=== PATIENT | male | born 1955 | race Caucasian/White ===

== ENCOUNTER 2023-03-03 12:44 | Inpatient (IN) | payer MEDICARE, OTHER ==
[~2023-03-03] VITALS: Ht 167.6 cm; Wt 72.6 kg
[2023-03-03] MEDS ORDERED: methylPREDNISolone SOD SUCC 125 MG/2ML VIAL ONE (13:27)
[2023-03-03] MEDS ORDERED: IV NS 0.9% 500 ML IV ONE (13:30)
[2023-03-03] MEDS ORDERED: methylPREDNISolone SOD SUCC 125 MG/2ML VIAL IV ONE (13:30)
[2023-03-03] MEDS ORDERED: ALBUTEROL FS 2.5 MG/3 ML VIAL.NEB NEB ONE (13:30)
[2023-03-03] MEDS ORDERED: IPRATROPIUM NEB FS 0.5 MG/2.5 ML AMPUL.NEB NEB ONE (13:30)
[2023-03-03] MEDS ORDERED: ALBUTEROL FS 2.5 MG/3 ML VIAL.NEB ONE (13:38)
[2023-03-03] MEDS ORDERED: IPRATROPIUM NEB FS 0.5 MG/2.5 ML AMPUL.NEB ONE (13:38)
[2023-03-03] MEDS ORDERED: HYDR-4076 PO (13:39)
[2023-03-03] MEDS ORDERED: IPRA3AMP22 HHN (13:39)
[2023-03-03] MEDS ORDERED: TACR30OI5 TP (13:39)
[2023-03-03] MEDS ORDERED: BISA10SU11 RC (13:39)
[2023-03-03] MEDS ORDERED: KETO15CR2 TP (13:39)
[2023-03-03] MEDS ORDERED: NA P133E RC (13:39)
[2023-03-03] MEDS ORDERED: MULT-213 PO (13:39)
[2023-03-03] MEDS ORDERED: PANT40TA49 PO (13:39)
[2023-03-03] MEDS ORDERED: TAMS-12 PO (13:39)
[2023-03-03] MEDS ORDERED: LEVE100S PO (13:39)
[2023-03-03] MEDS ORDERED: MIRT-90 PO (13:39)
[2023-03-03] MEDS ORDERED: MAGN400O6 PO (13:39)
[2023-03-03] MEDS ORDERED: ACET-868 PO (13:39)
[2023-03-03] MEDS ORDERED: BUDE10.27 IH (13:39)
[2023-03-03] MEDS ORDERED: LOSA50TA39 PO (13:39)
[2023-03-03] MEDS ORDERED: NEOM1OIN15 TP (13:41)
[2023-03-03 13:42] VITALS: O2SAT 96
[2023-03-03 13:57] VITALS: O2SAT 98
[2023-03-03 14:00] LABS: BASOPHILS % (AUTO) 0.3 % (0.0-2.0); HEMATOCRIT 43 % (39-51); HEMOGLOBIN 14.5 g/dL (13.5-17.5); LYMPHOCYTES # (AUTO) 0.7 K/uL (0.8-4.8); MEAN CORPUSCULAR HEMOGLOBIN 30 PG (26.0-33.0); MEAN CORPUSCULAR HGB CONC 34 g/dl (31.0-36.0); MEAN CORPUSCULAR VOLUME 90 fL (80-96); MONOCYTES # (AUTO) 0.8 K/uL (0.1-1.30); MONOCYTES % (AUTO) 6.8 % (2.0-12.0); NEUTROPHILS # (AUTO) 9.7 K/uL (1.8-8.9); NEUTROPHILS % (AUTO) 86.9 % (43.0-81.0); PLATELET COUNT (AUTO) 203 K/uL (150-450); RED BLOOD CELL COUNT(AUTO) 4.78 MIL/uL (4.5-6.0); RED CELL DISTRIBUTION WIDTH 14.6 % (11.5-15.0); WHITE BLOOD COUNT (AUTO) 11.2 K/uL (4.3-11.0)
[2023-03-03 14:09] LABS: CALCIUM, SERUM 9.5 mg/dL (8.5-10.1); CARBON DIOXIDE 27 mmol/L (21-32); CHLORIDE 105 mmol/L (98-107); CREATININE 0.8 mg/dL (0.6-1.3); GLUCOSE 134 mg/dL (74-106); POTASSIUM 3.5 mmol/L (3.5-5.1); SODIUM SERUM 141 mmol/L (136-145); UREA NITROGEN, BLOOD 27 mg/dL (7-18)
[2023-03-03 14:15] LABS: ALANINE AMINOTRANSFERASE 22 U/L (12-78); ALBUMIN 2.9 g/dL (3.4-5.0); ALKALINE PHOSPHATASE 87 U/L (46-116); ASPARTATE AMINOTRANSFERASE 20 U/L (15-37); BILIRUBIN,DIRECT 0.2 mg/dL (0.0-0.2); BILIRUBIN,TOTAL 0.7 mg/dL (0.2-1.0); TOTAL PROTEIN, SERUM 7.5 g/dL (6.4-8.2)
[2023-03-03] MEDS ORDERED: AZITHROMYCIN 500 MG in IV D5W 250 ML IV ONE (15:30)
[2023-03-03] MEDS ORDERED: ONDANSETRON HCL/PF 4 MG/2 ML VIAL IVP PRN (16:00)
[2023-03-03] MEDS ORDERED: ALBUTEROL FS 2.5 MG/0.5 ML VIAL.NEB NEB PRN ×3 (16:00→16:30)
[2023-03-03] MEDS ORDERED: hydrALAZINE HCL IV 20 MG VIAL IV PRN (16:00)
[2023-03-03] MEDS ORDERED: MAGNESIUM HYDROXIDE 30 ML UDC PO PRN (16:00)
[2023-03-03] MEDS ORDERED: MORPHINE SULFATE INJ 2 MG/ML DISP.SYRIN IV PRN (16:00)
[2023-03-03] MEDS ORDERED: ACETAMINOPHEN 325 MG TABLET PO PRN (16:00)
[2023-03-03] MEDS ORDERED: IPRATROPIUM NEB FS 0.5 MG/2.5 ML AMPUL.NEB NEB PRN (16:30)
[2023-03-03] MEDS: hydrALAZINE HCL 25 MG TABLET PO SCH (17:00)
[2023-03-03] MEDS ORDERED: LEVETIRACETAM SOL (5 ML) 100 MG/ML UDC PO SCH (17:00)
[2023-03-03] MEDS: CEFEPIME 2 GM in IV D5W 100 ML IV SCH (18:35)
[2023-03-03] MEDS: BUDESONIDE RESPULE INH 0.5 MG/2 ML AMPUL.NEB NEB SCH (19:30)
[2023-03-03 20:00] VITALS: BP 101/69; TEMP 97.9; O2SAT 96
[2023-03-03] MEDS: MIRTAZAPINE 15 MG TABLET PO SCH (21:22)
[2023-03-03] MEDS: TAMSULOSIN 0.4 MG CAP.SR.24H PO SCH (21:22)
[2023-03-03] MEDS: HEPARIN SODIUM, PORCINE 5000 UNITS/1 ML VIAL SQ SCH (21:22)
[2023-03-04] VITALS (7 sets, daily range): BP systolic 102–107; BP diastolic 60–79; TEMP 97.6–98.4; O2SAT 92–99
[2023-03-04] MEDS: CEFEPIME 2 GM in IV D5W 100 ML IV SCH ×3 (01:25→17:22)
[2023-03-04 06:46] LABS: ALBUMIN 2.3 g/dL (3.4-5.0); BILIRUBIN,TOTAL 0.5 mg/dL (0.2-1.0); CALCIUM, SERUM 9.3 mg/dL (8.5-10.1); CREATININE 0.5 mg/dL (0.6-1.3); MAGNESIUM 2.5 mg/dL (1.8-2.4); PHOSPHORUS 3.2 mg/dL (2.5-4.9); POTASSIUM 5.1 mmol/L (3.5-5.1); TOTAL PROTEIN, SERUM 6.8 g/dL (6.4-8.2)
[2023-03-04] MEDS: BUDESONIDE RESPULE INH 0.5 MG/2 ML AMPUL.NEB NEB SCH ×2 (07:30→19:59)
[2023-03-04] MEDS: ALBUTEROL FS 2.5 MG/0.5 ML VIAL.NEB NEB SCH ×3 (07:35→19:56)
[2023-03-04] MEDS: LEVETIRACETAM (250 MG) 250 MG TABLET PO SCH ×2 (08:18→16:42)
[2023-03-04] MEDS: PANTOPRAZOLE 40 MG TABLET.DR PO SCH (08:18)
[2023-03-04] MEDS: hydrALAZINE HCL 25 MG TABLET PO SCH ×3 (09:00→17:00)
[2023-03-04] MEDS: LOSARTAN POTASSIUM 50 MG TABLET PO SCH (09:00)
[2023-03-04] MEDS: HEPARIN SODIUM, PORCINE 5000 UNITS/1 ML VIAL SQ SCH ×2 (09:26→21:28)
[2023-03-04] MEDS: GUAIFENESIN LA 600 MG TABLET.SA PO SCH ×2 (09:42→21:13)
[2023-03-04] MEDS ORDERED: Z GUARD REMEDY 4 OZ OINT TP PRN (11:30)
[2023-03-04] MEDS: Z GUARD REMEDY 4 OZ OINT TP SCH (12:08)
[2023-03-04 17:41] LABS: BASOPHILS % (AUTO) 0.1 % (0.0-2.0); EOSINOPHILS % (AUTO) 0.2 % (0.0-6.0); HEMATOCRIT 40 % (39-51); HEMOGLOBIN 13.2 g/dL (13.5-17.5); LYMPHOCYTES # (AUTO) 0.7 K/uL (0.8-4.8); LYMPHOCYTES % (AUTO) 7.3 % (20.0-44.0); MEAN CORPUSCULAR HEMOGLOBIN 31 PG (26.0-33.0); MEAN CORPUSCULAR HGB CONC 33 g/dl (31.0-36.0); MEAN CORPUSCULAR VOLUME 92 fL (80-96); MONOCYTES # (AUTO) 0.5 K/uL (0.1-1.30); MONOCYTES % (AUTO) 5.8 % (2.0-12.0); NEUTROPHILS # (AUTO) 7.7 K/uL (1.8-8.9); NEUTROPHILS % (AUTO) 86.6 % (43.0-81.0); PLATELET COUNT (AUTO) 205 K/uL (150-450); RED BLOOD CELL COUNT(AUTO) 4.32 MIL/uL (4.5-6.0); RED CELL DISTRIBUTION WIDTH 14.6 % (11.5-15.0); WHITE BLOOD COUNT (AUTO) 8.9 K/uL (4.3-11.0)
[2023-03-04] MEDS: TAMSULOSIN 0.4 MG CAP.SR.24H PO SCH (21:13)
[2023-03-04] MEDS: MIRTAZAPINE 15 MG TABLET PO SCH (21:13)
[2023-03-05] VITALS (11 sets, daily range): BP systolic 107–125; BP diastolic 64–79; TEMP 97.7–97.9; O2SAT 92–99
[2023-03-05] MEDS: CEFEPIME 2 GM in IV D5W 100 ML IV SCH ×3 (01:48→17:37)
[2023-03-05] MEDS: ALBUTEROL FS 2.5 MG/0.5 ML VIAL.NEB NEB SCH ×4 (02:01→20:01)
[2023-03-05] MEDS: BUDESONIDE RESPULE INH 0.5 MG/2 ML AMPUL.NEB NEB SCH ×2 (07:50→20:01)
[2023-03-05] MEDS: PANTOPRAZOLE 40 MG TABLET.DR PO SCH (08:22)
[2023-03-05] MEDS: GUAIFENESIN LA 600 MG TABLET.SA PO SCH ×2 (08:22→20:38)
[2023-03-05] MEDS: LEVETIRACETAM (250 MG) 250 MG TABLET PO SCH ×2 (08:23→16:18)
[2023-03-05] MEDS: hydrALAZINE HCL 25 MG TABLET PO SCH ×3 (09:00→17:00)
[2023-03-05] MEDS: LOSARTAN POTASSIUM 50 MG TABLET PO SCH (09:00)
[2023-03-05] MEDS: HEPARIN SODIUM, PORCINE 5000 UNITS/1 ML VIAL SQ SCH ×2 (09:12→20:39)
[2023-03-05] MEDS: Z GUARD REMEDY 4 OZ OINT TP SCH (09:22)
[2023-03-05] MEDS: PROSOURCE / PROSTAT (PYXIS) 30 ML UDC PO SCH ×2 (13:04→16:19)
[2023-03-05] MEDS: TAMSULOSIN 0.4 MG CAP.SR.24H PO SCH (21:25)
[2023-03-05] MEDS: MIRTAZAPINE 15 MG TABLET PO SCH (21:25)
[2023-03-06] VITALS (7 sets, daily range): BP systolic 111–120; BP diastolic 68–72; TEMP 97.9; O2SAT 94–98
[2023-03-06] MEDS: ALBUTEROL FS 2.5 MG/0.5 ML VIAL.NEB NEB SCH ×3 (01:43→14:04)
[2023-03-06] MEDS: CEFEPIME 2 GM in IV D5W 100 ML IV SCH ×2 (01:44→10:33)
[2023-03-06 05:55] LABS: BASOPHILS % (AUTO) 0.3 % (0.0-2.0); EOSINOPHILS % (AUTO) 0.6 % (0.0-6.0); HEMATOCRIT 40 % (39-51); HEMOGLOBIN 13.5 g/dL (13.5-17.5); LYMPHOCYTES # (AUTO) 1.1 K/uL (0.8-4.8); LYMPHOCYTES % (AUTO) 27.4 % (20.0-44.0); MEAN CORPUSCULAR HEMOGLOBIN 31 PG (26.0-33.0); MEAN CORPUSCULAR HGB CONC 34 g/dl (31.0-36.0); MEAN CORPUSCULAR VOLUME 90 fL (80-96); MONOCYTES # (AUTO) 0.3 K/uL (0.1-1.30); MONOCYTES % (AUTO) 7.3 % (2.0-12.0); NEUTROPHILS # (AUTO) 2.5 K/uL (1.8-8.9); NEUTROPHILS % (AUTO) 64.4 % (43.0-81.0); PLATELET COUNT (AUTO) 197 K/uL (150-450); RED BLOOD CELL COUNT(AUTO) 4.42 MIL/uL (4.5-6.0); RED CELL DISTRIBUTION WIDTH 14.4 % (11.5-15.0); WHITE BLOOD COUNT (AUTO) 3.9 K/uL (4.3-11.0)
[2023-03-06 06:12] LABS: CALCIUM, SERUM 9.2 mg/dL (8.5-10.1); CREATININE 0.6 mg/dL (0.6-1.3); MAGNESIUM 2.3 mg/dL (1.8-2.4); PHOSPHORUS 2.4 mg/dL (2.5-4.9); POTASSIUM 3.8 mmol/L (3.5-5.1)
[2023-03-06] MEDS: PANTOPRAZOLE 40 MG TABLET.DR PO SCH (08:06)
[2023-03-06] MEDS: BUDESONIDE RESPULE INH 0.5 MG/2 ML AMPUL.NEB NEB SCH (08:09)
[2023-03-06] MEDS: PROSOURCE / PROSTAT (PYXIS) 30 ML UDC PO SCH ×2 (09:51→13:45)
[2023-03-06] MEDS: GUAIFENESIN LA 600 MG TABLET.SA PO SCH (09:52)
[2023-03-06] MEDS: LEVETIRACETAM (250 MG) 250 MG TABLET PO SCH (09:52)
[2023-03-06] MEDS: hydrALAZINE HCL 25 MG TABLET PO SCH ×2 (09:55→13:00)
[2023-03-06] MEDS: LOSARTAN POTASSIUM 50 MG TABLET PO SCH (09:55)
[2023-03-06] MEDS: HEPARIN SODIUM, PORCINE 5000 UNITS/1 ML VIAL SQ SCH (10:03)
[2023-03-06] MEDS: Z GUARD REMEDY 4 OZ OINT TP SCH (10:24)
[2023-03-06] MEDS ORDERED: AMOX1TAB16 PO (10:29)
[2023-03-06] MEDS ORDERED: NEUTRA PHOS 1 POWD.PACKET PO ONE (17:00)
== END 2023-03-06 17:37 | DRG 177 ==
LOC: ER 12:50 → MED 16:56
PROVIDERS: ADMIT Internal Medicine; ATTEND Nurse Practitioner Acute Care
DX: J69.0 Pneumonitis due to inhalation of food and vomit (principal); J96.21 Acute and chronic respiratory failure with hypoxia; E44.1 Mild protein-calorie malnutrition; G93.49 Other encephalopathy; J44.1 Chronic obstructive pulmonary disease with (acute) exacerbation; J44.0 Chronic obstructive pulmonary disease with (acute) lower respiratory infection; I11.0 Hypertensive heart disease with heart failure; F03.90 Unspecified dementia, unspecified severity, without behavioral disturbance, psychotic disturbance, mood disturbance, and anxiety; I50.9 Heart failure, unspecified; R62.7 Adult failure to thrive; G40.909 Epilepsy, unspecified, not intractable, without status epilepticus; Z20.822 Contact with and (suspected) exposure to COVID-19; F32.A Depression, unspecified; Z88.5 Allergy status to narcotic agent; Z79.51 Long term (current) use of inhaled steroids; Z79.899 Other long term (current) drug therapy; I95.9 Hypotension, unspecified; Z73.6 Limitation of activities due to disability; E88.09 Other disorders of plasma-protein metabolism, not elsewhere classified; Z87.891 Personal history of nicotine dependence; Z99.81 Dependence on supplemental oxygen
CPT/HCPCS: 36415; 71045-TC; 71250-TC; 80048-TC; 80053-TC; 80076-TC; 83605-TC; 83735-TC; 84100-TC; 84484-TC; 85025-TC; 87040-TC; 87081-TC; 92526; 92611-TC; 94799-TC; A4223; C9803; G0378; J0692; J1644; J1953; J2930; J7030; J7050; J7060

== ENCOUNTER 2024-03-28 19:41 | Inpatient (IN) | payer MEDICARE, OTHER ==
[~2024-03-28] VITALS: Ht 170.2 cm; Wt 45.4 kg
[~2024-03-28 19:41] MED LIST: ACET-868 PO; AMOX1TAB16 PO; BISA10SU11 RC; BUDE10.27 IH; HYDR-4076 PO; IPRA3AMP22 HHN; KETO15CR2 TP; LEVE100S PO; LOSA50TA39 PO; MAGN400O6 PO; MIRT-90 PO; MULT-213 PO; NA P133E RC; NEOM1OIN15 TP; PANT40TA49 PO; TACR30OI5 TP; TAMS-12 PO
[2024-03-28] MEDS: Magnesium 1GM/D5W 100ML PREMIX 200 ML IV ONE (20:00)
[2024-03-28] MEDS: ALBUTEROL FS 2.5 MG/3 ML VIAL.NEB CONTNEB ONE (20:00)
[2024-03-28] MEDS: AZITHROMYCIN 500 MG in IV D5W 250 ML IV ONE (20:00)
[2024-03-28] MEDS: methylPREDNISolone SOD SUCC 125 MG/2ML VIAL IV ONE (20:00)
[2024-03-28] MEDS ORDERED: AZITHROMYCIN 500 MG VIAL ONE (20:08)
[2024-03-28 20:14] LABS: BASOPHILS % (AUTO) 0.4 % (0.0-2.0); EOSINOPHILS # (AUTO) 0.1 K/uL (0.0-0.7); EOSINOPHILS % (AUTO) 0.7 % (0.0-6.0); HEMATOCRIT 39 % (39-51); HEMOGLOBIN 12.4 g/dL (13.5-17.5); LYMPHOCYTES # (AUTO) 0.8 K/uL (0.8-4.8); LYMPHOCYTES % (AUTO) 9.3 % (20.0-44.0); MEAN CORPUSCULAR HEMOGLOBIN 27 PG (26.0-33.0); MEAN CORPUSCULAR HGB CONC 32 g/dl (31.0-36.0); MEAN CORPUSCULAR VOLUME 84 fL (80-96); MONOCYTES # (AUTO) 0.2 K/uL (0.1-1.30); NEUTROPHILS # (AUTO) 7.3 K/uL (1.8-8.9); NEUTROPHILS % (AUTO) 86.6 % (43.0-81.0); PLATELET COUNT (AUTO) 292 K/uL (150-450); RED BLOOD CELL COUNT(AUTO) 4.66 MIL/uL (4.5-6.0); WHITE BLOOD COUNT (AUTO) 8.4 K/uL (4.3-11.0)
[2024-03-28 20:22] LABS: CALCIUM, SERUM 9.3 mg/dL (8.5-10.1); CARBON DIOXIDE 30 mmol/L (21-32); CHLORIDE 101 mmol/L (98-107); CREATININE 0.5 mg/dL (0.6-1.3); GLUCOSE 120 mg/dL (74-106); POTASSIUM 3.7 mmol/L (3.5-5.1); SODIUM SERUM 138 mmol/L (136-145); UREA NITROGEN, BLOOD 18 mg/dL (7-18)
[2024-03-28] MEDS: IPRATROPIUM NEB FS 0.5 MG/2.5 ML AMPUL.NEB NEB ONE (20:31)
[2024-03-28 20:34] LABS: ALANINE AMINOTRANSFERASE 24 U/L (12-78); ALBUMIN 2.4 g/dL (3.4-5.0); ALKALINE PHOSPHATASE 97 U/L (46-116); ASPARTATE AMINOTRANSFERASE 27 U/L (15-37); BILIRUBIN,DIRECT 0.2 mg/dL (0.0-0.2); BILIRUBIN,TOTAL 0.5 mg/dL (0.2-1.0); NT-PRO BNP 194 pg/mL (0-125); TOTAL PROTEIN, SERUM 7.3 g/dL (6.4-8.2)
[2024-03-28 20:37] LABS: ABG OXYGEN SATURATION 92.4 % (94.0-98.0); ABG PCO2 34.3 mmHg (35.0-48.0); ABG PH 7.436 (7.350-7.450); ABG PO2 65.9 mmHg (83.0-108.0); ABG TOTAL HEMOGLOBIN 13.3 G/dL (13.5-17.5); COHb 0.3 % (0.5-1.5); MetHb 0.4 % (0.0-1.5); O2Hb 91.8 % (94.0-97.0); SITE, ABG LEFT RADIAL
[2024-03-28] MEDS ORDERED: PIPERACI/TAZO 3.375GM/D5W 50ML PB IV ONE (21:09)
[2024-03-28] MEDS: PIPERACILLIN /TAZOBACTAM 3.375 G in IV D5W 50 ML IV ONE (21:11)
[2024-03-28] MEDS ORDERED: VANCOMYCIN 1 GM /D5W 250 ML PB IV ONE (21:15)
[2024-03-28] MEDS: VANCOMYCIN 1 GM in IV D5W 250 ML IV ONE (21:22)
[2024-03-28] MEDS ORDERED: ONDANSETRON HCL/PF 4 MG/2 ML VIAL IVP PRN (21:30)
[2024-03-28] MEDS ORDERED: MAG HYDROX/AL HYDROX/SIMETH 30 ML UDC PO PRN (21:30)
[2024-03-28] MEDS ORDERED: IPRATROPIUM NEB FS 0.5 MG/2.5 ML AMPUL.NEB NEB PRN ×2 (21:30→22:30)
[2024-03-28] MEDS ORDERED: BISACODYL SUPP (10 MG) 10 MG/SUPP.RECT SUPP.RECT RC PRN (21:30)
[2024-03-28] MEDS ORDERED: MAGNESIUM HYDROXIDE 30 ML UDC PO PRN ×2 (21:30)
[2024-03-28] MEDS ORDERED: IPRATROPIUM NEB FS 0.5 MG/2.5 ML AMPUL.NEB NEB SCH (21:30)
[2024-03-28] MEDS ORDERED: TACROLIMUS 30 GM TP PRN (21:30)
[2024-03-28] MEDS ORDERED: ACETAMINOPHEN 325 MG TABLET PO PRN (21:30)
[2024-03-28] MEDS ORDERED: ALBUTEROL FS 2.5 MG/0.5 ML VIAL.NEB NEB PRN ×2 (21:30→22:30)
[2024-03-28] MEDS ORDERED: ALBUTEROL FS 2.5 MG/0.5 ML VIAL.NEB NEB SCH (21:30)
[2024-03-28] MEDS: MIRTAZAPINE 15 MG TABLET PO SCH (22:00)
[2024-03-28] MEDS: TAMSULOSIN 0.4 MG CAP.SR.24H PO SCH (22:00)
[2024-03-28] MEDS ORDERED: IOHEXOL-300 100 ML VIAL IV ONE (22:09)
[2024-03-28] MEDS ORDERED: IV NS 0.9% 250 ML IV ONE (22:09)
[2024-03-28 22:49] VITALS: BP 150/121; O2SAT 94
[2024-03-28 22:53] VITALS: BP 150/121; TEMP 97.4; O2SAT 94
[2024-03-28 23:00] VITALS: BP 163/109; O2SAT 94
[2024-03-28 23:15] VITALS: BP 94/65; O2SAT 94
[2024-03-28] MEDS: ENOXAPARIN SODIUM 40 MG/0.4 ML DISP.SYRIN SQ SCH (23:17)
[2024-03-29] VITALS (48 sets, daily range): BP systolic 84–142; BP diastolic 61–112; TEMP 97.4–98.2; O2SAT 43–100
[2024-03-29 02:00] LABS: ABG BASE EXCESS 0.2 mmol/L (-2.0-3.0); ABG OXYGEN SATURATION 54.8 % (94.0-98.0); ABG PCO2 45.2 mmHg (35.0-48.0); ABG PH 7.374 (7.350-7.450); ABG PO2 32.1 mmHg (83.0-108.0); ABG TOTAL HEMOGLOBIN 13.9 G/dL (13.5-17.5); COHb 0.3 % (0.5-1.5); MetHb 0.2 % (0.0-1.5); O2Hb 54.5 % (94.0-97.0); SITE, ABG RIGHT RADIAL
[2024-03-29] MEDS: ALBUTEROL FS 2.5 MG/3 ML VIAL.NEB NEB SCH (02:12)
[2024-03-29] MEDS ORDERED: PIPERACILLIN /TAZOBACTAM 3.375 G in IV D5W 50 ML IV SCH (05:00)
[2024-03-29] MEDS: IV NS 0.9% 250 ML IV PRN (05:00)
[2024-03-29] MEDS: ZOSYN IVPB 3.375 G in IV D5W 50ml IV SCH (05:00)
[2024-03-29] MEDS: methylPREDNISolone SOD SUCC 40 MG/ML VIAL IV SCH (05:02)
[2024-03-29] MEDS: PIPERACI/TAZO 3.375GM/D5W 50ML PB IV ONE (05:02)
[2024-03-29 05:34] LABS: BASOPHILS % (AUTO) 0.1 % (0.0-2.0); HEMATOCRIT 36 % (39-51); HEMOGLOBIN 12.1 g/dL (13.5-17.5); LYMPHOCYTES # (AUTO) 0.2 K/uL (0.8-4.8); LYMPHOCYTES % (AUTO) 3.3 % (20.0-44.0); MEAN CORPUSCULAR HEMOGLOBIN 28 PG (26.0-33.0); MEAN CORPUSCULAR HGB CONC 34 g/dl (31.0-36.0); MEAN CORPUSCULAR VOLUME 82 fL (80-96); MONOCYTES # (AUTO) 0.1 K/uL (0.1-1.30); MONOCYTES % (AUTO) 0.9 % (2.0-12.0); NEUTROPHILS # (AUTO) 6.2 K/uL (1.8-8.9); NEUTROPHILS % (AUTO) 95.7 % (43.0-81.0); PLATELET COUNT (AUTO) 321 K/uL (150-450); RED BLOOD CELL COUNT(AUTO) 4.34 MIL/uL (4.5-6.0); RED CELL DISTRIBUTION WIDTH 17.5 % (11.5-15.0); WHITE BLOOD COUNT (AUTO) 6.5 K/uL (4.3-11.0)
[2024-03-29 05:53] LABS: CALCIUM, SERUM 9.5 mg/dL (8.5-10.1); CREATININE 0.5 mg/dL (0.6-1.3); MAGNESIUM 2.7 mg/dL (1.8-2.4); PHOSPHORUS 4.4 mg/dL (2.5-4.9); POTASSIUM 4.2 mmol/L (3.5-5.1)
[2024-03-29] MEDS ORDERED: IPRATROPIUM NEB FS 0.5 MG/2.5 ML AMPUL.NEB NEB SCH (06:43)
[2024-03-29] MEDS ORDERED: BUSP5TAB3 PO (07:45)
[2024-03-29] MEDS ORDERED: BUDE0.5A IH (07:45)
[2024-03-29] MEDS ORDERED: CHOL200059 PO (07:45)
[2024-03-29] MEDS ORDERED: BUPR100T6 PO (07:45)
[2024-03-29] MEDS ORDERED: MIRT7.5T10 PO (07:45)
[2024-03-29] MEDS: IPRATROPIUM NEB FS 0.5 MG/2.5 ML AMPUL.NEB NEB SCH (08:15)
[2024-03-29] MEDS: BUDESONIDE RESPULE INH 0.5 MG/2 ML AMPUL.NEB NEB SCH (08:15)
[2024-03-29] MEDS: VANCOMYCIN 1 GM in IV D5W 250 ML IV SCH (08:15)
[2024-03-29] MEDS: hydrALAZINE HCL 25 MG TABLET PO SCH (08:44)
[2024-03-29] MEDS: LOSARTAN POTASSIUM 50 MG TABLET PO SCH (08:45)
[2024-03-29] MEDS: PIPERACILLIN /TAZOBACTAM 3.375 G in IV D5W 100 ML IV SCH (09:02)
[2024-03-29] MEDS: KETOCONAZOLE 2% CREAM 15 GM TUBE TP SCH (09:03)
[2024-03-29] MEDS: PANTOPRAZOLE 40 MG VIAL IV SCH (09:03)
[2024-03-29] MEDS: LEVETIRACETAM SOL (5 ML) 100 MG/ML UDC PO SCH (09:24)
[2024-03-29] MEDS: MULTIVIT W/MINERALS 1 TAB TABLET PO SCH (09:24)
[2024-03-29 10:28] LABS: ABG BASE EXCESS 0.9 mmol/L (-2.0-3.0); ABG OXYGEN SATURATION 99.4 % (94.0-98.0); ABG PCO2 35.8 mmHg (35.0-48.0); ABG PH 7.453 (7.350-7.450); ABG PO2 262.9 mmHg (83.0-108.0); ABG TOTAL HEMOGLOBIN 12.6 G/dL (13.5-17.5); COHb 0.3 % (0.5-1.5); MetHb 0.3 % (0.0-1.5); O2Hb 98.8 % (94.0-97.0); SITE, ABG LEFT RADIAL
[2024-03-29] MEDS ORDERED: CEFEPIME 2 GM in IV D5W 100 ML IV SCH (10:30)
[2024-03-29] MEDS: CEFEPIME 2 GM in IV D5W 100 ML IV SCH (12:29)
[2024-03-29] MEDS: busPIRone 5 MG TABLET PO SCH (16:39)
[2024-03-29] MEDS: BUDESONIDE RESPULE INH 0.5 MG/2 ML AMPUL.NEB IH SCH (17:01)
[2024-03-29] MEDS: AZITHROMYCIN 500 MG in IV D5W 250 ML IV SCH (21:02)
[2024-03-29] MEDS: Z GUARD REMEDY 4 OZ OINT TP PRN (21:03)
[2024-03-30] VITALS (27 sets, daily range): BP systolic 80–118; BP diastolic 56–87; TEMP 96.7–98.4; O2SAT 94–100
[2024-03-30 05:30] LABS: HEMATOCRIT 35 % (39-51); HEMOGLOBIN 11.8 g/dL (13.5-17.5); INR 1.06 (0.91-1.10); LYMPHOCYTES # (AUTO) 0.6 K/uL (0.8-4.8); LYMPHOCYTES % (AUTO) 5.7 % (20.0-44.0); MEAN CORPUSCULAR HEMOGLOBIN 28 PG (26.0-33.0); MEAN CORPUSCULAR HGB CONC 34 g/dl (31.0-36.0); MEAN CORPUSCULAR VOLUME 84 fL (80-96); MONOCYTES # (AUTO) 0.4 K/uL (0.1-1.30); MONOCYTES % (AUTO) 4.2 % (2.0-12.0); NEUTROPHILS # (AUTO) 9.1 K/uL (1.8-8.9); NEUTROPHILS % (AUTO) 90.1 % (43.0-81.0); PARTIAL THROMBOPLASTIN TIME 30.2 SEC (24.3-34.3); PLATELET COUNT (AUTO) 316 K/uL (150-450); PROTHROMBIN TIME 11.2 SECS (9.2-11.1); RED BLOOD CELL COUNT(AUTO) 4.19 MIL/uL (4.5-6.0); RED CELL DISTRIBUTION WIDTH 17.7 % (11.5-15.0); WHITE BLOOD COUNT (AUTO) 10.1 K/uL (4.3-11.0)
[2024-03-30 05:32] LABS: CALCIUM, SERUM 9.6 mg/dL (8.5-10.1); CREATININE 0.6 mg/dL (0.6-1.3); POTASSIUM 3.8 mmol/L (3.5-5.1)
[2024-03-30 06:19] LABS: THYROID STIMULATING HORMONE 0.63 uIU/mL (0.358-3.74)
[2024-03-30] MEDS: buPROPion SR 100 MG TABLET.ER PO SCH (08:45)
[2024-03-31] VITALS (12 sets, daily range): BP systolic 97–138; BP diastolic 53–82; TEMP 97.7–98.2; O2SAT 96–100
[2024-03-31 05:09] LABS: FOLIC ACID 2.4 ng/mL (>3.0)
[2024-03-31 08:12] LABS: IMMUNOGLOBULIN A, SERUM 553 mg/dL (61-437); IMMUNOGLOBULIN G, SERUM 1056 mg/dL (603-1613); IMMUNOGLOBULIN M, SERUM 109 mg/dL (20-172)
[2024-03-31 09:07] LABS: FREE KAPPA LT CHAINS SERUM 26.8 mg/L (3.3-19.4); FREE LAMBDA LT CHAIN SERUM 23.6 mg/L (5.7-26.3); KAPPA/LAMBDA RATIO SERUM 1.14 (0.26-1.65)
[2024-03-31 11:15] LABS: HEMATOCRIT 34 % (39-51); HEMOGLOBIN 11.1 g/dL (13.5-17.5); LYMPHOCYTES # (AUTO) 0.2 K/uL (0.8-4.8); LYMPHOCYTES % (AUTO) 4.2 % (20.0-44.0); MEAN CORPUSCULAR HEMOGLOBIN 27 PG (26.0-33.0); MEAN CORPUSCULAR HGB CONC 33 g/dl (31.0-36.0); MEAN CORPUSCULAR VOLUME 83 fL (80-96); MONOCYTES # (AUTO) 0.1 K/uL (0.1-1.30); MONOCYTES % (AUTO) 1.9 % (2.0-12.0); NEUTROPHILS # (AUTO) 4.1 K/uL (1.8-8.9); NEUTROPHILS % (AUTO) 93.9 % (43.0-81.0); PLATELET COUNT (AUTO) 248 K/uL (150-450); RED BLOOD CELL COUNT(AUTO) 4.09 MIL/uL (4.5-6.0); RED CELL DISTRIBUTION WIDTH 18.1 % (11.5-15.0); WHITE BLOOD COUNT (AUTO) 4.3 K/uL (4.3-11.0)
[2024-03-31 12:19] LABS: CALCIUM, SERUM 9.7 mg/dL (8.5-10.1); CREATININE 0.6 mg/dL (0.6-1.3); POTASSIUM 3.9 mmol/L (3.5-5.1)
[2024-04-01] VITALS (15 sets, daily range): BP systolic 95–124; BP diastolic 64–73; TEMP 97.3–98.3; O2SAT 89–100
[2024-04-01 05:12] LABS: *SPE A/G RATIO 0.7 (0.7-1.7); *SPE ALBUMIN 2.5 g/dL (2.9-4.4); *SPE ALPHA-1-GLOBULIN 0.4 g/dL (0.0-0.4); *SPE ALPHA-2-GLOBULIN 1.1 g/dL (0.4-1.0); *SPE BETA GLOBULIN 1.3 g/dL (0.7-1.3); *SPE GLOBULIN, TOTAL 3.7 g/dL (2.2-3.9); *SPE M-SPIKE 0.5 g/dL (Not Observed); *SPE PROTEIN TOTAL 6.2 g/dL (6.0-8.5)
[2024-04-01] MEDS: PANTOPRAZOLE 40 MG TABLET.DR PO SCH (08:37)
[2024-04-01] MEDS: FOLIC ACID 1 MG TABLET PO SCH (08:37)
[2024-04-01 09:54] LABS: CALCIUM, SERUM 9.3 mg/dL (8.5-10.1); CREATININE 0.5 mg/dL (0.6-1.3); POTASSIUM 4.1 mmol/L (3.5-5.1)
[2024-04-01] MEDS: methylPREDNISolone SOD SUCC 40 MG/ML VIAL IV SCH (11:40)
[2024-04-01] MEDS: IV NS 0.9% 250 ML IV ONE (12:17)
[2024-04-01] MEDS ORDERED: DOXY-326 PO (13:09)
[2024-04-01] MEDS ORDERED: PRED20TA PO ×2 (13:09)
[2024-04-01] MEDS ORDERED: PANT40TA2 PO (13:09)
[2024-04-01] MEDS ORDERED: CEFU500T66 PO (13:09)
[2024-04-01] MEDS ORDERED: IV NS 0.9% 500 ML IV ONE (14:00)
[2024-04-01] MEDS: IV NS 0.9% 500 ML IV ONE (14:02)
[2024-04-01] MEDS ORDERED: VANCOMYCIN 750 MG in IV D5W 250 ML IV SCH (17:00)
[2024-04-01] MEDS: VANCOMYCIN 500 MG in IV D5W 100ml IV SCH (22:06)
[2024-04-02] VITALS (8 sets, daily range): BP systolic 111–125; BP diastolic 49–72; TEMP 97.8–98.3; O2SAT 91–100
[2024-04-02 08:06] LABS: POTASSIUM 3.8 mmol/L (3.5-5.1)
[2024-04-02 08:58] LABS: CALCIUM, SERUM 9.3 mg/dL (8.5-10.1); CREATININE 0.6 mg/dL (0.6-1.3)
== END 2024-04-02 13:25 | DRG 177 ==
LOC: ER 19:48 → ICU 21:52 → TELE1 03-30 16:19 → MEDSG1 04-02 10:41
PROVIDERS: ATTEND Nurse Practitioner Acute Care
PROC: 5A09457 Assistance with Respiratory Ventilation, 24-96 Consecutive Hours, Continuous Positive Airway Pressure (ICD-10-PCS; principal; 2024-03-28)
DX: J15.69 Pneumonia due to other Gram-negative bacteria (principal); E43 Unspecified severe protein-calorie malnutrition; J96.21 Acute and chronic respiratory failure with hypoxia; J44.1 Chronic obstructive pulmonary disease with (acute) exacerbation; J44.0 Chronic obstructive pulmonary disease with (acute) lower respiratory infection; D68.59 Other primary thrombophilia; F01.53 Vascular dementia, unspecified severity, with mood disturbance; K86.1 Other chronic pancreatitis; N13.30 Unspecified hydronephrosis; J15.9 Unspecified bacterial pneumonia; G40.909 Epilepsy, unspecified, not intractable, without status epilepticus; I50.9 Heart failure, unspecified; I11.0 Hypertensive heart disease with heart failure; F32.9 Major depressive disorder, single episode, unspecified; Z88.5 Allergy status to narcotic agent; Z79.51 Long term (current) use of inhaled steroids; Z79.899 Other long term (current) drug therapy; N40.0 Benign prostatic hyperplasia without lower urinary tract symptoms; Z66 Do not resuscitate; Z74.01 Bed confinement status; E88.09 Other disorders of plasma-protein metabolism, not elsewhere classified; Z85.841 Personal history of malignant neoplasm of brain; D64.9 Anemia, unspecified; E53.8 Deficiency of other specified B group vitamins; J43.9 Emphysema, unspecified; Y95 Nosocomial condition
CPT/HCPCS: 31720; 36415; 36600; 71045-TC; 71260-TC; 80048-TC; 80076-TC; 80202-TC; 82378; 82607-TC; 82728-TC; 82784; 82803-TC; 82962-TC; 83540-TC; 83605-TC; 83735-TC; 83880; 84100-TC; 84155; 84165; 84443-TC; 84484-TC; 85025-TC; 85610-TC; 85730-TC; 86334; 87040-TC; 87081-TC; 93307-TC; 94762-TC; 94799-TC; 99082-TC; A4223; G0378; J0456; J0692; J1650; J1953; J2470; J2543; J2919; J3370; J3371; J3475; J7040; J7050; J7060; Q9967